=== PATIENT | female | born 1940 | race Caucasian/White ===

== ENCOUNTER 2017-01-13 19:51 | Emergency (ER) | payer OTHER ==
[2017-01-13 19:59] VITALS: BP 144/80; PULSE 58; TEMP 98.2; BMI 22.4
--- NOTE | 2017-01-13 20:36 | PDOC ---
History of Present Illness - General Chief Complaint: Itching Stated Complaint: BITE Time Seen by Provider: 01/13/17 20:21 History Source: Patient Exam Limitations: No Limitations - History of Present Illness Initial Comments: 01/13/17 20:31 77 yr female with pain to left ankle after for 2 days. Pt recalls feeling something possibly bite her ankle 2 days ago, then felt itching. Pt now today feels pain . Pt unsure if she twisted the ankle. no fever no redness no chills. Occurred: reports: yesterday Severity: Yes: mild Lower Extremity Pain Location: left: ankle (no redness no swelling , FROM of the joint, tender to touch lateral bottom surface of the foot ) Method of Injury: Yes: unknown Past History - Past Medical History Allergies/Adverse Reactions: Allergies Allergy/AdvReac Type Severity Reaction Status Date / Time No Known Allergies Allergy Verified 03/27/12 13:59 Home Medications: Ambulatory Orders Amlodipine Besylate [Norvasc -] 5 mg PO DAILY 03/27/12 Aspirin Coated [Ecotrin -] 81 mg PO DAILY 03/27/12 Colesevelam HCl [Welchol] 625 mg PO DAILY 03/27/12 Isosorbide Mononitrate [Isosorbide Mononitrate ER] 1 tab PO DAILY 03/27/12 Lansoprazole [Prevacid] 30 mg PO DAILY 03/27/12 Rosuvastatin Calcium [Crestor] 20 mg PO DAILY 03/27/12 Prasugrel Hydrochloride [Effient -] 10 mg PO DAILY #0 03/28/12 Carvedilol [Coreg -] 25 mg PO BID 01/13/17 Ezetimibe [Zetia -] 10 mg PO DAILY 01/13/17 Nitroglycerin 0.4 mg SL ASDIR 01/13/17 Anemia: No Asthma: No Cancer: No Cardiac Disorders: Yes CVA: No COPD: No CHF: No Dementia: No Diabetes: No GI Disorders: Yes (HX.COLON POLYPS) Disorders: No HTN: Yes Hypercholesterolemia: Yes Liver Disease: No Seizures: No Thyroid Disease: No - Surgical History Abdominal Surgery: No Appendectomy: No Cardiac Surgery: No Cholecystectomy: No Lung Surgery: No Neurologic Surgery: No Orthopedic Surgery: No - Immunization History Immunization Up to Date: Yes - Psycho/Social/Smoking Cessation Hx Suicidal Ideation: No Smoking History: Never smoked Have you smoked in the past 12 months: No Information on smoking cessation initiated: No Hx Alcohol Use: No Drug/Substance Use Hx: No Substance Use Type: None Hx Substance Use Treatment: No Review of Systems - Review of Systems Able to Perform ROS?: Yes Is the patient limited Frisian proficient: No Constitutional: No: Symptoms Reported HEENTM: No: Symptoms Reported Respiratory: No: Symptoms reported Cardiac (ROS): No: Symptoms Reported ABD/GI: No: Symptoms Reported : No: Symptoms Reported Musculoskeletal: Yes: See HPI *Physical Exam - Vital Signs Last Vital Signs Temp Pulse Resp BP Pulse Ox 98.2 F 58 L 20 144/80 98 01/13/17 19:54 01/13/17 19:54 01/13/17 19:54 01/13/17 19:54 01/13/17 19:54 - Physical Exam General Appearance: Yes: Nourished, Appropriately Dressed HEENT: positive: EOMI, URSULA Neck: positive: Supple Respiratory/Chest: positive: Lungs Clear, Normal Breath Sounds Cardiovascular: positive: Regular Rhythm, Regular Rate Musculoskeletal: positive: Normal Inspection Extremity: positive: Normal Capillary Refill, Normal Inspection, Normal Range of Motion, Swelling (lateral malleoulus , no redness no evidence of bite or infection ) Integumentary: positive: Normal Color, Dry, Warm Neurologic: positive: Fully Oriented, Alert, Normal Mood/Affect, Normal Response , Motor Strength 5/5 ED Treatment Course - RADIOLOGY Radiology Studies Ordered: Category Date Time Status ANKLE & FOOT-LEFT* [RAD] Stat Radiology 01/13/17 20:28 Ordered Medical Decision Making - Medical Decision Making 01/13/17 20:36 cc: left ankle pain for 1 day unsure of injury possibly twisted, no evidence of infection nv intact pt has FROM of all five toes pt refused pain medicine will xray to r/o fracture 01/13/17 20:42 *DC/Admit/Observation/Transfer Diagnosis at time of Disposition: Foot pain, left - Discharge Dispostion Disposition: HOME Condition at time of disposition: Good - Referrals Referrals: Yaya Mcdowell MD [Primary Care Provider] - Quinten Oseguera MD [Staff Physician] - - Patient Instructions Additional Instructions: apply Benadryl cream to the are of itching you can soak your foot in warm salt water a few times a day this can also help with pain follow with the sales operations lead if symptoms worsen or persist Return if any fever, redness, swelling worse
== END 2017-01-13 20:51 | disposition home or self-care (01) ==
LOC: JERFT 19:51
DX: M79.672 Pain in left foot (principal); I10 Essential (primary) hypertension; E78.00 Pure hypercholesterolemia, unspecified; Z86.010 Personal history of colon polyps; Z79.82 Long term (current) use of aspirin
CPT/HCPCS: 73610-TC-LT; 73630-TC-LT; 99281-25

== ENCOUNTER → 2017-03-17 | Day surgery (SDC) | payer OTHER ==
[2017-03-16 13:26] VITALS: BMI 22.6
[~2017-03-17] MED LIST: LIDOCAINE HCL/PF 2% SDV 5ML VIAL ONE; PROPOFOL 20 ML ONE
[2017-03-17 10:20] VITALS: TEMP 97.6
[2017-03-17 11:27] VITALS: BP 136/60; PULSE 57
--- NOTE | 2017-03-20 12:14 | PATH ---
Surgical Pathology Report Patient Name: VERONIKA VAIL [facility]. Rec. #: [id number] /Age/Gender: 1940 (Age: 77) / F Account: [id number] Location: U-ENDOSCOPY Taken: 03/17/2017 Received: 03/17/2017 Reported: 03/20/2017 Physicians: Helen Ingram M.D. Specimen(s) Received A: BIOPSY AND 2ND PORTION OF DUODENUM/BULB B: BX ANTRUM C: BX GASTRIC BODY POLYP D: BX GE JUNCTION E: BX RIGHT COLON POLYP F: BX DISTAL TRANSVERSE COLON POLYP Clinical History History of distal reflux stricture, history of polyps Gastritis, gastric polyp, diverticulosis, right/distal transverse colon polyps Final Diagnosis A. DUODENUM, SECOND PORTION AND BULB, BIOPSY: DUODENAL MUCOSA WITH NO PATHOLOGIC CHANGES. NO HISTOLOGIC EVIDENCE OF GLUTEN SENSITIVE ENTEROPATHY (CELIAC SPRUE) IDENTIFIED. B. STOMACH, ANTRUM, BIOPSY: MILD CHRONIC GASTRITIS. IMMUNOSTAIN FOR H. PYLORI IS NEGATIVE. C. STOMACH, BODY POLYP, BIOPSY: HYPERPLASTIC POLYP. IMMUNOSTAIN FOR H. PYLORI IS NEGATIVE. D. GE JUNCTION, BIOPSY: SQUAMOUS AND GLANDULAR MUCOSA WITH CHRONIC INFLAMMATION AND PAPILLOMATOSIS SUGGESTIVE OF REFLUX ESOPHAGITIS. 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 NO DYSPLASIA IDENTIFIED. E. COLON, RIGHT, BIOPSY: COLONIC MUCOSA WITH SMALL LYMPHOID AGGREGATE IN LAMINA PROPRIA. NO ADENOMATOUS OR HYPERPLASTIC CHANGES IDENTIFIED. F. COLON, DISTAL TRANSVERSE, BIOPSY: COLONIC MUCOSA WITH NO PATHOLOGIC CHANGES. NO ADENOMATOUS OR HYPERPLASTIC CHANGES IDENTIFIED. Electronically Signed Lalo Martínez M.D. Gross Description A. Received in formalin, labeled "biopsy second portion of duodenum/bulb" are 3 allen, irregular portions of soft tissue ranging from 0.3-0.4 cm. in greatest dimension. The specimens are submitted in toto in one cassette. B. Received in formalin, labeled "biopsy antrum" are 2 allen, irregular portions of soft tissue measuring 0.1 and 0.5 cm. in greatest dimension. The specimens are submitted in toto in one cassette. C. Received in formalin, labeled "biopsy gastric body polyp" are 2 allen, irregular portions of soft tissue averaging 0.4 cm. in greatest dimension. The specimens are submitted in toto in one cassette. D. Received in formalin, labeled "biopsy GE junction" are 2 allen, irregular portions of soft tissue measuring 0.3 and 0.8 cm. in greatest dimension. The specimens are submitted in toto in one cassette. E. Received in formalin, labeled "biopsy right colon polyp" are 2 allen, irregular portions of soft tissue averaging 0.3 cm. in greatest dimension. The specimens are submitted in toto in one cassette. F. Received in formalin, labeled "biopsy distal transverse colon polyp" is a allen, irregular portion of soft tissue measuring 0.4 cm. in greatest dimension. The specimen is submitted in toto in one cassette. 03/17/2017 [facility]03/17/2017
== END | disposition home or self-care (01) ==
LOC: JASU-ENDO 08:18
PROVIDERS: ATTEND Internal Medicine Gastroenterology
PROC: 0DB68ZX Excision of Stomach, Via Natural or Artificial Opening Endoscopic, Diagnostic (ICD-10-PCS; 2017-03-17)
PROC: 0DB48ZX Excision of Esophagogastric Junction, Via Natural or Artificial Opening Endoscopic, Diagnostic (ICD-10-PCS; 2017-03-17)
PROC: 0DBK8ZX Excision of Ascending Colon, Via Natural or Artificial Opening Endoscopic, Diagnostic (ICD-10-PCS; 2017-03-17)
PROC: 0DBL8ZX Excision of Transverse Colon, Via Natural or Artificial Opening Endoscopic, Diagnostic (ICD-10-PCS; 2017-03-17)
PROC: 0DB98ZX Excision of Duodenum, Via Natural or Artificial Opening Endoscopic, Diagnostic (ICD-10-PCS; principal; 2017-03-17 09:30)
DX: Z12.11 Encounter for screening for malignant neoplasm of colon (principal); Z80.0 Family history of malignant neoplasm of digestive organs; D12.2 Benign neoplasm of ascending colon; D12.3 Benign neoplasm of transverse colon; K57.30 Diverticulosis of large intestine without perforation or abscess without bleeding; K64.8 Other hemorrhoids; Z86.010 Personal history of colon polyps; K31.7 Polyp of stomach and duodenum; K44.9 Diaphragmatic hernia without obstruction or gangrene; K29.70 Gastritis, unspecified, without bleeding
CPT/HCPCS: 88305-TC; 88342-TC

== ENCOUNTER 2018-08-26 14:30 | Emergency (ER) | payer OTHER ==
[2018-08-26 14:37] VITALS: BP 136/79; PULSE 57; TEMP 97.6; BMI 22.4
--- NOTE | 2018-08-26 15:13 | PDOC ---
History of Present Illness - General Chief Complaint: Pain Stated Complaint: LOWER BACK PAIN Time Seen by Provider: 08/26/18 14:38 - History of Present Illness Initial Comments: 08/26/18 15:10 78-year-old female with multiple comorbidities presents for evaluation of lower back pain without radicular symptoms times one day. She states she was getting off the couch felt immediate onset of lower back pain and had difficulty getting off the couch after that. No systemic symptoms or loss of bowel bladder function Past History - Past Medical History Allergies/Adverse Reactions: Allergies Allergy/AdvReac Type Severity Reaction Status Date / Time No Known Allergies Allergy Verified 08/26/18 14:37 Home Medications: Ambulatory Orders Aspirin Coated [Ecotrin -] 81 mg PO DAILY 03/27/12 Rosuvastatin Calcium [Crestor] 40 mg PO DAILY 03/27/12 Prasugrel Hydrochloride [Effient -] 10 mg PO DAILY #0 03/28/12 Carvedilol [Coreg -] 25 mg PO BID 01/13/17 Ezetimibe [Zetia -] 10 mg PO DAILY 01/13/17 Colesevelam HCl [Welchol (Nf)] 3,750 mg PO DAILY 03/16/17 Parluent 75 mg SQ ASDIR 03/16/17 Valsartan 160 mg PO DAILY 03/16/17 Cyclobenzaprine HCl [Flexeril 10 mg] 10 mg PO HS PRN #10 tablet 08/26/18 Anemia: No Asthma: No Cancer: No Cardiac Disorders: Yes (MD ', CABG CARDIAC STENT 1999) CVA: No COPD: No CHF: No Dementia: No Diabetes: No GI Disorders: Yes (HX.COLON POLYPS, 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, SCHATZKI RING) Disorders: No HTN: Yes Hypercholesterolemia: Yes Liver Disease: No Seizures: No Thyroid Disease: No - Surgical History Abdominal Surgery: No Appendectomy: No Cardiac Surgery: Yes (CABG) Cholecystectomy: No Lung Surgery: No Neurologic Surgery: No Orthopedic Surgery: No - Immunization History Immunization Up to Date: Yes - Suicide/Smoking/Psychosocial Hx Smoking History: Never smoked Have you smoked in the past 12 months: No Hx Alcohol Use: No Drug/Substance Use Hx: No Substance Use Type: None Hx Substance Use Treatment: No Review of Systems - Review of Systems Musculoskeletal: Yes: Back Pain *Physical Exam - Vital Signs Last Vital Signs Temp Pulse Resp BP Pulse Ox 97.6 F 57 L 18 136/79 98 08/26/18 14:33 08/26/18 14:33 08/26/18 14:33 08/26/18 14:33 08/26/18 14:33 - Physical Exam Comments: 08/26/18 15:11 Lumbar spine skin color and temperature are normal. There is no midline tenderness. Mild right-sided paralumbar musculature spasm and tenderness 5 out of 5 strength bilateral lower extremities without gross sensorimotor deficits. Moderate Sedation - Procedure Monitoring Vital Signs: Procedure Monitoring Vital Signs Temperature 97.6 F 08/26/18 14:33 Pulse Rate 57 L 08/26/18 14:33 Respiratory Rate 18 08/26/18 14:33 Blood Pressure 136/79 08/26/18 14:33 O2 Sat by Pulse Oximetry (%) 98 08/26/18 14:33 ED Treatment Course - RADIOLOGY Radiology Studies Ordered: Category Date Time Status SPINE-LUMBAR SACRAL [RAD] Stat Radiology 08/26/18 14:38 Taken Medical Decision Making - Medical Decision Making 08/26/18 15:12 X-ray show moderate lumbar arthropathy no compression fractures Flexeril and Tylenol follow-up with or ortho spine *DC/Admit/Observation/Transfer Diagnosis at time of Disposition: Lumbar strain - Discharge Dispostion Disposition: HOME Condition at time of disposition: Stable Decision to Admit order: No - Prescriptions Prescriptions: Cyclobenzaprine HCl [Flexeril 10 mg] 10 mg PO HS PRN #10 tablet PRN Reason: Muscle Spasms - Referrals Referrals: Yaya Mcdowell MD [Primary Care Provider] - Srini Cedillo MD [Staff Physician] - - Patient Instructions Printed Discharge Instructions: DI for Back Strain or Sprain Additional Instructions: I prescribed fewer muscle relaxer which will make you sleepy. Its one tablet before bedtime. He may supplement that medication with Tylenol. Avoid anti- inflammatories such as Advil Motrin Aleve and ibuprofen. Follow-up with orthopedic spine surgery in 1-2 days for further evaluation and treatment options and return to the emergency room should symptoms worsen - Post Discharge Activity
== END 2018-08-26 15:16 | disposition home or self-care (01) ==
LOC: JERFT 14:30
DX: S39.012A Strain of muscle, fascia and tendon of lower back, initial encounter (principal); X50.1XXA Overexertion from prolonged static or awkward postures, initial encounter; Y93.89 Activity, other specified; Y92.018 Other place in single-family (private) house as the place of occurrence of the external cause; Y99.8 Other external cause status; I25.10 Atherosclerotic heart disease of native coronary artery without angina pectoris; I10 Essential (primary) hypertension; Z95.1 Presence of aortocoronary bypass graft; Z95.5 Presence of coronary angioplasty implant and graft; I25.2 Old myocardial infarction; E78.00 Pure hypercholesterolemia, unspecified; Z87.19 Personal history of other diseases of the digestive system
CPT/HCPCS: 72100-TC-FY; 99281-25

== ENCOUNTER 2021-03-05 04:43 | Day surgery (SDC) | payer OTHER ==
[2021-03-05 08:29] VITALS: BMI 22.0
[2021-03-05] MEDS ORDERED: ETOMIDATE 20 MG/10 ML AMPUL IVPUSH ONE (09:22)
[2021-03-05 10:09] VITALS: TEMP 97
[2021-03-05 11:50] VITALS: BP 114/65; PULSE 60
== END 2021-03-05 11:12 | disposition home or self-care (01) ==
LOC: JASU-ENDO 04:43
PROVIDERS: ATTEND Internal Medicine Gastroenterology
PROC: 0DB98ZX Excision of Duodenum, Via Natural or Artificial Opening Endoscopic, Diagnostic (ICD-10-PCS; 2021-03-05)
PROC: 0DB68ZX Excision of Stomach, Via Natural or Artificial Opening Endoscopic, Diagnostic (ICD-10-PCS; 2021-03-05)
PROC: 0DB28ZX Excision of Middle Esophagus, Via Natural or Artificial Opening Endoscopic, Diagnostic (ICD-10-PCS; 2021-03-05)
PROC: 0DB48ZX Excision of Esophagogastric Junction, Via Natural or Artificial Opening Endoscopic, Diagnostic (ICD-10-PCS; 2021-03-05)
PROC: 0DBN8ZX Excision of Sigmoid Colon, Via Natural or Artificial Opening Endoscopic, Diagnostic (ICD-10-PCS; principal; 2021-03-05 09:00)
DX: Z12.11 Encounter for screening for malignant neoplasm of colon (principal); Z86.010 Personal history of colon polyps; D50.9 Iron deficiency anemia, unspecified; K92.1 Melena; D12.5 Benign neoplasm of sigmoid colon; K57.30 Diverticulosis of large intestine without perforation or abscess without bleeding; K64.8 Other hemorrhoids; K55.20 Angiodysplasia of colon without hemorrhage; K21.9 Gastro-esophageal reflux disease without esophagitis; K44.9 Diaphragmatic hernia without obstruction or gangrene; K29.00 Acute gastritis without bleeding
CPT/HCPCS: 88305-TC; 88342-TC

== ENCOUNTER 2023-10-24 09:40 | Emergency (ER) | payer OTHER ==
[2023-10-24 09:49] VITALS: TEMP 97.8; BMI 21.4
[2023-10-24] MEDS ORDERED: ACETAMINOPHEN INJECTION 100 ML IVPB ONE (10:51)
[2023-10-24] MEDS ORDERED: ALBUTEROL SO4 2.5/IPRATROPIUM 0.5 INH SOL 3 ML VIAL.NEB. NEB ONE (10:51)
[2023-10-24] MEDS ORDERED: DEXAMETHASONE SOD PHOSPHATE 4 MG/1 ML VIAL ONE (10:51)
[2023-10-24 10:58] LABS: BASO % 0.2 % (0-2.0); EOS % 1.9 % (0-4.5); HEMATOCRIT 35.7 % (32.4-45.2); HEMOGLOBIN 11.8 GM/dL (10.7-15.3); LYMPH % 22.7 % (8-40); MCH 28.6 pg (25.7-33.7); MCHC 33.2 g/dl (32.0-36.0); MEAN CELL VOLUME 86.2 fl (80-96); MEAN PLT VOLUME 7.7 fl (7.5-11.1); MONO % 7.2 % (3.8-10.2); PLATELET COUNT 243 10^3/uL (134-434); RBC 4.14 M/mm3 (3.60-5.2); RDW 15.8 % (11.6-15.6)
[2023-10-24] MEDS: DEXAMETHASONE SOD PHOSPHATE 4 MG/1 ML VIAL IVPUSH ONE (11:02)
[2023-10-24] MEDS: ALBUTEROL SO4 2.5/IPRATROPIUM 0.5 INH SOL 3 ML VIAL.NEB. NEB ONE (11:02)
[2023-10-24] MEDS: ACETAMINOPHEN 1000 MG/100 ML BAG IVPB ONE (11:03)
[2023-10-24] MEDS: SODIUM CHLORIDE 0.9% 1000 ML INFUS.BAG IV ONE (11:03)
[2023-10-24 11:17] LABS: POTASSIUM 4.4 mmol/L (3.5-5.1)
[2023-10-24 11:19] LABS: ALBUMIN 3.7 g/dl (3.4-5.0); CALCIUM 8.4 mg/dL (8.5-10.1)
[2023-10-24 11:20] LABS: BLOOD UREA NITROGEN 21.4 mg/dL (7-18); MAGNESIUM 2.1 mg/dL (1.8-2.4)
[2023-10-24 11:23] LABS: CREATININE 0.8 mg/dL (0.55-1.3)
[2023-10-24 11:25] LABS: BILIRUBIN,TOTAL 0.5 mg/dL (0.2-1)
[2023-10-24 11:28] LABS: N-TERMINAL BNP 165.9 pg/ml (5-450)
[2023-10-24 13:18] VITALS: BP 133/67; PULSE 100; RESP 20
== END 2023-10-24 13:19 | disposition home or self-care (01) ==
LOC: JER 09:40
PROC: 3E033NZ Introduction of Analgesics, Hypnotics, Sedatives into Peripheral Vein, Percutaneous Approach (ICD-10-PCS; principal; 2023-10-24)
PROC: 3E033GC Introduction of Other Therapeutic Substance into Peripheral Vein, Percutaneous Approach (ICD-10-PCS; 2023-10-24)
PROC: 3E0F7GC Introduction of Other Therapeutic Substance into Respiratory Tract, Via Natural or Artificial Opening (ICD-10-PCS; 2023-10-24)
DX: R05.1 Acute cough (principal); R07.89 Other chest pain; Z20.822 Contact with and (suspected) exposure to COVID-19
CPT/HCPCS: 0241U-QW; 36415; 71045-TC-FY; 80053; 83735; 83880; 84484; 85025; 93005; 93010; 99285-25; J0131

== ENCOUNTER 2023-10-30 22:44 | Emergency (ER) | payer OTHER ==
[2023-10-30 22:51] VITALS: BP 144/69; PULSE 63; RESP 20; TEMP 97.8; BMI 21.4
[2023-10-30] MEDS ORDERED: ACETAMINOPHEN 325 MG TABLET (FP) ONE (23:25)
[2023-10-30] MEDS: ACETAMINOPHEN 325 MG TABLET (FP) PO ONE (23:30)
== END 2023-10-31 00:15 | disposition home or self-care (01) ==
LOC: JER 22:44
DX: M53.3 Sacrococcygeal disorders, not elsewhere classified (principal); K59.00 Constipation, unspecified
CPT/HCPCS: 72220-TC-FY; 99283-25

== ENCOUNTER → 2024-02-29 | Day surgery (SDC) | payer OTHER | END | disposition home or self-care (01) | LOC: JRADIR 10:15 | PROVIDERS: ATTEND Internal Medicine | PROC: 0GBG3ZX Excision of Left Thyroid Gland Lobe, Percutaneous Approach, Diagnostic (ICD-10-PCS; principal; 2024-02-29) | DX: E04.1 Nontoxic single thyroid nodule (principal) | CPT/HCPCS: 10005; 76942; 88173; 88305-TC ==

== ENCOUNTER 2025-01-30 06:16 | Day surgery (SDC) | payer OTHER ==
[2025-01-29 10:13] VITALS: BMI 19.8
[2025-01-30] MEDS ORDERED: BUPIVACAINE HCL/PF 0.5% (5MG/ML) 10 ML VIAL ONE (07:16)
[2025-01-30] MEDS ORDERED: TRIAMCINOLONE ACET 40MG/1ML VIAL ONE (07:16)
[2025-01-30] MEDS ORDERED: DEXAMETHASONE SOD PHOSPHATE 10 MG/1 ML VIAL ONE (07:17)
[2025-01-30] MEDS ORDERED: BUPIVACAINE HCL/PF 0.75% 10 ML VIAL ONE (07:17)
[2025-01-30] MEDS ORDERED: LIDOCAINE HCL/PF 1% SDV 5ML VIAL ONE (07:17)
[2025-01-30] MEDS: LIDOCAINE HCL 1% PRESERVATIVE FREE - 30ML VIAL IJ ONE (10:51)
[2025-01-30 11:25] VITALS: BP 141/73; PULSE 62; RESP 18; TEMP 97.9
== END 2025-01-30 12:15 | disposition home or self-care (01) ==
LOC: JASU-SURG 06:16
PROVIDERS: ATTEND Pain Medicine Pain Medicine
PROC: 01HY3MZ Insertion of Neurostimulator Lead into Peripheral Nerve, Percutaneous Approach (ICD-10-PCS; principal; 2025-01-30 11:00)
DX: G89.4 Chronic pain syndrome (principal)
CPT/HCPCS: 64555; C1778; 76000-TC-FY; J1100